=== PATIENT | male | born 1950 | race Caucasian/White ===

== ENCOUNTER → 2018-09-07 | Outpatient (REF) | payer MEDICARE, BC ==
[~2018-09-07] MED LIST: ASPIRIN EC LOW81 MG; DIPHENHYDRAM25 M2 PO; GABAPENTIN800 MG PO; JANUMET1 TA1 PO; LISINOPRIL40 MG PO
[2018-09-07 09:41] LABS: IMMATURE GRANULOCYTES 0.6 % (0.0-5.0); MEAN CORPUSCULAR HGB 25.7 pG CALC (26.0-32.0); MEAN CORPUSCULAR HGB CONC 30.2 g/L CALC (32.0-36.0); NEUT# 5.4 thou/uL (1.82-7.42); RED BLOOD COUNT 4.83 mill/uL (4.70-6.10); RED CELL DISTRI WIDTH 15.2 % (11.5-15.5)
[2018-09-07 09:58] LABS: ALBUMIN 3.9 g/dL (3.2-5.0); ALKALINE PHOSPHATASE 142 u/l (38-126); ANION GAP 14 (6-22 (CALC)); BILIRUBIN, TOTAL 0.4 mg/dL (0.0-1.4); BUN 21 mg/dL (8-23); BUN/CREATININE RATIO 18 (12-20 (CALC)); CALCULATED LDLCHOLESTEROL 69 mg/dL (62-129 (CALC)); CARBON DIOXIDE 28 mmol/l (22-30); CHLORIDE 100 mmol/l (95-108); CHOLESTEROL HDL RATIO 4.8 (<4.4 (CALC)); CREATININE 1.2 mg/dL (0.7-1.3); GFR > 60 ML/MIN (>=60 (CALC)); GFR FOR AFR.AMER. > 60 ML/MIN (>=60 (CALC)); HDL CHOLESTEROL 30 mg/dL (>=40); POTASSIUM 4.2 mmol/l (3.5-5.1); SGOT/AST 32 u/l (19-48); SODIUM 138 mmol/l (137-146); TOTAL PROTEIN 7.4 g/dL (6.3-8.2); TOTAL TRIGLYCERIDES 227 mg/dl (30-149); VLDL CHOLESTROL 45 mg/dl (4-45 (CALC))
[2018-09-07 09:59] LABS: TOTAL CHOLESTEROL 144 mg/dl (0-199)
[2018-09-07 10:24] LABS: HEMOGLOBIN 12.4 g/dl (14.0-18.0); MEAN CELL VOLUME 84.9 fL CALC (80.0-100.0)
== END | disposition home or self-care (01) ==
LOC: LAB 08:51
PROVIDERS: ATTEND Internal Medicine Cardiovascular Disease
DX: I25.10 Atherosclerotic heart disease of native coronary artery without angina pectoris (principal); E78.5 Hyperlipidemia, unspecified; E11.9 Type 2 diabetes mellitus without complications; I10 Essential (primary) hypertension; Z12.5 Encounter for screening for malignant neoplasm of prostate; N18.3 Chronic kidney disease, stage 3 (moderate); M79.671 Pain in right foot

== ENCOUNTER → 2018-09-22 | Outpatient (REF) | payer MEDICARE, BC ==
[2018-09-22 13:45] LABS: HEMATOCRIT 40.3 % (39.0-50.0); IMMATURE GRANULOCYTES 0.6 % (0.0-5.0); MEAN CELL VOLUME 85.2 fL CALC (80.0-100.0); MEAN CORPUSCULAR HGB 25.4 pG CALC (26.0-32.0); MEAN CORPUSCULAR HGB CONC 29.8 g/L CALC (32.0-36.0); NEUT# 6.26 thou/uL (1.82-7.42); RED BLOOD COUNT 4.73 mill/uL (4.70-6.10); RED CELL DISTRI WIDTH 16.4 % (11.5-15.5)
[2018-09-22 14:12] LABS: ANION GAP 16 (6-22 (CALC)); BUN 21 mg/dL (8-23); BUN/CREATININE RATIO 16 (12-20 (CALC)); CARBON DIOXIDE 27 mmol/l (22-30); CHLORIDE 98 mmol/l (95-108); CREATININE 1.3 mg/dL (0.7-1.3); GFR 55 ML/MIN (>=60 (CALC)); GFR FOR AFR.AMER. > 60 ML/MIN (>=60 (CALC)); POTASSIUM 4.1 mmol/l (3.5-5.1); SODIUM 138 mmol/l (137-146)
== END | disposition home or self-care (01) ==
LOC: LAB 12:34
PROVIDERS: ATTEND Internal Medicine Cardiovascular Disease
DX: Z01.818 Encounter for other preprocedural examination (principal); I10 Essential (primary) hypertension; N18.3 Chronic kidney disease, stage 3 (moderate); I25.10 Atherosclerotic heart disease of native coronary artery without angina pectoris; E11.9 Type 2 diabetes mellitus without complications

== ENCOUNTER 2018-10-12 13:54 | Emergency (ER) | payer MEDICARE, BC ==
[~2018-10-12] VITALS: Ht 176.5 cm; Wt 109.0 kg
[2018-10-12] MEDS ORDERED: DIOVAN HC2 PO (14:21)
[2018-10-12] MEDS ORDERED: CLOPIDOGREL75 MG PO (14:22)
[2018-10-12] MEDS ORDERED: SIMVASTATIN40 MG PO (14:23)
[2018-10-12] MEDS ORDERED: TOPROL XL PO (14:24)
[2018-10-12] MEDS ORDERED: AMLODIPINE5 MG PO (14:25)
[2018-10-12] MEDS ORDERED: PANTOPRAZOLE SO40 MG PO (14:25)
[2018-10-12] MEDS ORDERED: NORTRIPTYLIN25 MG PO (14:25)
[2018-10-12] MEDS ORDERED: SINGULAIR10 MG PO (14:26)
[2018-10-12] MEDS ORDERED: COQ-10100 MG PO (14:27)
[2018-10-12] MEDS ORDERED: TRESIBA FL100 UNIT/M SC (14:27)
[2018-10-12] MEDS ORDERED: HUMALOG100 UNIT/M SC (14:28)
[2018-10-12 14:52] LABS: HEMATOCRIT 38.3 % (39.0-50.0); HEMOGLOBIN 11.3 g/dl (14.0-18.0); IMMATURE GRANULOCYTES 0.4 % (0.0-5.0); MEAN CELL VOLUME 84.9 fL CALC (80.0-100.0); MEAN CORPUSCULAR HGB 25.1 pG CALC (26.0-32.0); MEAN CORPUSCULAR HGB CONC 29.5 g/L CALC (32.0-36.0); NEUT# 6.38 thou/uL (1.82-7.42); RED BLOOD COUNT 4.51 mill/uL (4.70-6.10); RED CELL DISTRI WIDTH 16.1 % (11.5-15.5)
[2018-10-12 14:58] LABS: ALBUMIN 4.1 g/dL (3.2-5.0); ALKALINE PHOSPHATASE 117 u/l (38-126); ANION GAP 16 (6-22 (CALC)); BILIRUBIN, TOTAL 0.5 mg/dL (0.0-1.4); BUN 26 mg/dL (8-23); BUN/CREATININE RATIO 21 (12-20 (CALC)); CARBON DIOXIDE 25 mmol/l (22-30); CHLORIDE 100 mmol/l (95-108); CREATININE 1.3 mg/dL (0.7-1.3); GFR 55 ML/MIN (>=60 (CALC)); GFR FOR AFR.AMER. > 60 ML/MIN (>=60 (CALC)); POTASSIUM 4.5 mmol/l (3.5-5.1); SGOT/AST 25 u/l (19-48); SODIUM 138 mmol/l (137-146); TOTAL PROTEIN 7.7 g/dL (6.3-8.2)
[2018-10-12 17:17] VITALS: BP 140/69
== END 2018-10-12 17:40 | disposition short-term general hospital (02) ==
LOC: ED 13:54
PROVIDERS: Emergency Medicine
DX: I21.4 Non-ST elevation (NSTEMI) myocardial infarction (principal); I50.9 Heart failure, unspecified; J44.1 Chronic obstructive pulmonary disease with (acute) exacerbation; F17.210 Nicotine dependence, cigarettes, uncomplicated; R06.02 Shortness of breath; R07.89 Other chest pain; I10 Essential (primary) hypertension; E11.9 Type 2 diabetes mellitus without complications; Z79.4 Long term (current) use of insulin; Z95.5 Presence of coronary angioplasty implant and graft

== ENCOUNTER 2019-01-21 10:18 | Emergency (ER) | payer MEDICARE, BC ==
[~2019-01-21] VITALS: Ht 176.5 cm; Wt 105.0 kg
[~2019-01-21 10:18] MED LIST changes: +AMLODIPINE5 MG PO; +CLOPIDOGREL75 MG PO; +COQ-10100 MG PO; +DIOVAN HC2 PO; +HUMALOG100 UNIT/M SC; +METO50TA52 PO; +NORTRIPTYLIN25 MG PO; +PANTOPRAZOLE SO40 MG PO; +SIMVASTATIN40 MG PO; +SINGULAIR10 MG PO; +TRESIBA FL100 UNIT/M SC
[2019-01-21] MEDS ORDERED: LIPITOR80 M1 PO (11:14)
[2019-01-21] MEDS ORDERED: BREO ELLIPTA 101 INH (11:15)
[2019-01-21] MEDS ORDERED: TESSALON PER100 MG PO (11:15)
[2019-01-21] MEDS ORDERED: LASIX 40 MG TAB40 MG PO (11:16)
[2019-01-21] MEDS ORDERED: DUONEB IN (11:16)
[2019-01-21] MEDS ORDERED: OMEGA 3340 MG PO (11:17)
[2019-01-21] MEDS ORDERED: INTEGRA PO (11:17)
[2019-01-21 11:35] LABS: HEMOGLOBIN 9.7 g/dl (14.0-18.0); IMMATURE GRANULOCYTES 2.1 % (0.0-5.0); MEAN CORPUSCULAR HGB 27.5 pG CALC (26.0-32.0); MEAN CORPUSCULAR HGB CONC 29.4 g/L CALC (32.0-36.0); NEUT# 9.28 thou/uL (1.82-7.42); RED BLOOD COUNT 3.53 mill/uL (4.70-6.10); RED CELL DISTRI WIDTH 17.4 % (11.5-15.5)
[2019-01-21 11:36] LABS: MEAN CELL VOLUME 93.5 fL CALC (80.0-100.0)
[2019-01-21 11:58] LABS: ALBUMIN 3.2 g/dL (3.2-5.0); ALKALINE PHOSPHATASE 175 u/l (38-126); ANION GAP 15 (6-22 (CALC)); BUN 29 mg/dL (8-23); BUN/CREATININE RATIO 23 (12-20 (CALC)); CARBON DIOXIDE 34 mmol/l (22-30); CHLORIDE 93 mmol/l (95-108); CREATININE 1.3 mg/dL (0.7-1.3); GFR 55 ML/MIN (>=60 (CALC)); GFR FOR AFR.AMER. > 60 ML/MIN (>=60 (CALC)); POTASSIUM 4.7 mmol/l (3.5-5.1); SGOT/AST 48 u/l (19-48); SODIUM 137 mmol/l (137-146); TOTAL PROTEIN 6.7 g/dL (6.3-8.2)
[2019-01-21 11:59] LABS: BILIRUBIN, TOTAL 0.8 mg/dL (0.0-1.4)
[2019-01-21 12:08] LABS: MYOGLOBIN 49 ng/mL (0 - 121)
[2019-01-21 14:26] VITALS: BP 141/70
== END 2019-01-21 14:25 | disposition short-term general hospital (02) ==
LOC: ED 10:18
PROVIDERS: Emergency Medicine
DX: J18.9 Pneumonia, unspecified organism (principal); J91.8 Pleural effusion in other conditions classified elsewhere; F17.200 Nicotine dependence, unspecified, uncomplicated; R06.02 Shortness of breath; Z99.81 Dependence on supplemental oxygen; I10 Essential (primary) hypertension; Z95.1 Presence of aortocoronary bypass graft; Z95.5 Presence of coronary angioplasty implant and graft; E11.9 Type 2 diabetes mellitus without complications; Z79.4 Long term (current) use of insulin; I50.9 Heart failure, unspecified
CPT/HCPCS: Q9967

== ENCOUNTER 2019-06-04 17:09 | Observation (INO) | payer MEDICARE, BC ==
[~2019-06-04] VITALS: Ht 177.8 cm; Wt 108.0 kg
[~2019-06-04 17:09] MED LIST changes: +BREO ELLIPTA 101 INH PO; +DUONEB IN; -HUMALOG100 UNIT/M SC; +INTEGRA PO; +LASIX 80 MG TAB80 MG PO; +LIPITOR80 M1 PO; -METO50TA52 PO; +NORVASC5 M1 PO; +NOVOLIN R100 UNIT/M SC; +OMEGA 3340 MG PO; +OXY1; +PAMELOR25 MG PO; +POTASSIUM CHLO20 ME2 PO; +TESSALON PER100 MG PO; +TOPROL XL PO
[2019-06-04 17:35] LABS: HEMATOCRIT 39.6 % (39.0-50.0); HEMOGLOBIN 12.1 g/dl (14.0-18.0); IMMATURE GRANULOCYTES 0.6 % (0.0-5.0); MEAN CELL VOLUME 87.4 fL CALC (80.0-100.0); MEAN CORPUSCULAR HGB 26.7 pG CALC (26.0-32.0); MEAN CORPUSCULAR HGB CONC 30.6 g/L CALC (32.0-36.0); NEUT# 8.09 thou/uL (1.82-7.42); RED BLOOD COUNT 4.53 mill/uL (4.70-6.10)
[2019-06-04 17:50] LABS: ALBUMIN 4.3 g/dL (3.2-5.0); ALKALINE PHOSPHATASE 131 u/l (38-126); ANION GAP 16 (6-22 (CALC)); BILIRUBIN, TOTAL 0.7 mg/dL (0.0-1.4); BUN 30 mg/dL (8-23); BUN/CREATININE RATIO 16 (12-20 (CALC)); CARBON DIOXIDE 28 mmol/l (22-30); CHLORIDE 97 mmol/l (95-108); CREATININE 1.9 mg/dL (0.7-1.3); GFR 36 ML/MIN (>=60 (CALC)); GFR FOR AFR.AMER. 43 ML/MIN (>=60 (CALC)); POTASSIUM 4.5 mmol/l (3.5-5.1); SGOT/AST 26 u/l (19-48); SODIUM 135 mmol/l (137-146); TOTAL PROTEIN 8.7 g/dL (6.3-8.2)
[2019-06-04 17:52] LABS: D-DIMER 3.9 mg/L (0.19-0.60); PROTHROMBIN TIME 10.7 SECONDS (9.0-12.5)
[2019-06-04] MEDS ORDERED: TRESIBA100 UNIT/M SC (17:57)
[2019-06-04 19:50] VITALS: BP 140/85
[2019-06-05 00:05] VITALS: BP 109/58
[2019-06-05 05:21] VITALS: BP 141/72
[2019-06-05 11:25] VITALS: BP 150/74
[2019-06-05 15:32] VITALS: BP 153/75
[2019-06-05 19:45] VITALS: BP 134/74
[2019-06-05 23:57] VITALS: BP 172/82
[2019-06-06 00:30] VITALS: BP 123/67
[2019-06-06 00:48] LABS: URINE BILIRUBIN - DIPSTICK NEGATIVE (NEGATIVE); URINE BLOOD DIPSTICK TRACE-LYSED (NEGATIVE); URINE COLOR YELLOW; URINE GLUCOSE - DIPSTICK NEGATIVE (NEGATIVE); URINE KETONE NEGATIVE (NEGATIVE); URINE LEUK ESTERASE NEGATIVE (NEGATIVE); URINE NITRITE - DIPSTICK NEGATIVE (Negative); URINE PH 6.5 (4.5-8.0); URINE PROTEIN - DIPSTICK 30 mg/dL (NEG-TRACE); URINE SPECIFIC GRAVITY 1.015; URINE UROBILINOGEN - DIPSTICK 0.2 E.U./dL (0.2)
[2019-06-06 00:51] LABS: URINE RBC 0-2 RBC/hpf (0-5); URINE WBC 0-2 WBC/hpf (0-5)
[2019-06-06 04:03] VITALS: BP 131/71
[2019-06-06 05:32] LABS: HEMATOCRIT 36.3 % (39.0-50.0); HEMOGLOBIN 11.1 g/dl (14.0-18.0); IMMATURE GRANULOCYTES 0.6 % (0.0-5.0); MEAN CELL VOLUME 87.1 fL CALC (80.0-100.0); MEAN CORPUSCULAR HGB 26.6 pG CALC (26.0-32.0); MEAN CORPUSCULAR HGB CONC 30.6 g/L CALC (32.0-36.0); NEUT# 7.91 thou/uL (1.82-7.42); RED BLOOD COUNT 4.17 mill/uL (4.70-6.10); RED CELL DISTRI WIDTH 16.3 % (11.5-15.5)
[2019-06-06 05:50] LABS: ALBUMIN 3.7 g/dL (3.2-5.0); ALKALINE PHOSPHATASE 110 u/l (38-126); BUN 36 mg/dL (8-23); BUN/CREATININE RATIO 31 (12-20 (CALC)); CARBON DIOXIDE 25 mmol/l (22-30); CHLORIDE 99 mmol/l (95-108); CREATININE 1.1 mg/dL (0.7-1.3); GFR > 60 ML/MIN (>=60 (CALC)); GFR FOR AFR.AMER. > 60 ML/MIN (>=60 (CALC)); SGOT/AST 21 u/l (19-48); SODIUM 134 mmol/l (137-146); TOTAL PROTEIN 7.6 g/dL (6.3-8.2)
[2019-06-06 06:08] LABS: ANION GAP 15 (6-22 (CALC)); BILIRUBIN, TOTAL 0.4 mg/dL (0.0-1.4); POTASSIUM 5.2 mmol/l (3.5-5.1)
[2019-06-06 07:19] VITALS: BP 163/73
[2019-06-06 11:17] VITALS: BP 144/78
[2019-06-06 15:14] VITALS: BP 157/84
[2019-06-06 19:32] VITALS: BP 147/69
[2019-06-07 00:33] VITALS: BP 142/71
[2019-06-07 04:26] VITALS: BP 120/57
[2019-06-07 08:02] VITALS: BP 170/83
[2019-06-07 10:20] VITALS: BP 153/75
[2019-06-07] MEDS ORDERED: MEDDOSEPAK PO (11:19)
[2019-06-07] MEDS ORDERED: KEFLEX500 M1 PO (11:19)
[2019-06-07] MEDS ORDERED: BACTRIM DS1 TAB PO (11:24)
[2019-06-07] MEDS ORDERED: TESSALON PERLE100 MG PO (11:24)
== END 2019-06-07 12:42 | disposition home or self-care (01) ==
LOC: ED 17:09 → ED-I 18:25 → ED 18:37 → MS2 18:38
PROVIDERS: Nurse Practitioner Family; ADMIT Internal Medicine; ATTEND Internal Medicine
DX: J44.1 Chronic obstructive pulmonary disease with (acute) exacerbation (principal); J98.11 Atelectasis; I12.9 Hypertensive chronic kidney disease with stage 1 through stage 4 chronic kidney disease, or unspecified chronic kidney disease; E11.22 Type 2 diabetes mellitus with diabetic chronic kidney disease; N18.3 Chronic kidney disease, stage 3 (moderate); E11.65 Type 2 diabetes mellitus with hyperglycemia; I48.0 Paroxysmal atrial fibrillation; I71.9 Aortic aneurysm of unspecified site, without rupture; I25.10 Atherosclerotic heart disease of native coronary artery without angina pectoris; G47.33 Obstructive sleep apnea (adult) (pediatric); F17.200 Nicotine dependence, unspecified, uncomplicated; Z95.828 Presence of other vascular implants and grafts; Z79.02 Long term (current) use of antithrombotics/antiplatelets; Z95.3 Presence of xenogenic heart valve; Z99.81 Dependence on supplemental oxygen; Z95.5 Presence of coronary angioplasty implant and graft; Z95.1 Presence of aortocoronary bypass graft; Z79.4 Long term (current) use of insulin
CPT/HCPCS: G0378